=== PATIENT | female | born 1990 | race Caucasian/White ===

== ENCOUNTER 2021-06-30 09:24 | Day surgery (SDC) | payer OTHER ==
[~2021-06-30] VITALS: Ht 165.1 cm; Wt 63.5 kg
[2021-06-30 12:02] LABS: BILIRUBIN NEGATIVE (NEGATIVE); BLOOD 3+ Ery/uL (NEGATIVE); CLARITY CLEAR (CLEAR); COLOR YELLOW (YELLOW); GLUCOSE (U) NORMAL (NORMAL); LEUKOCYTES NEGATIVE Leu/uL (NEGATIVE); NITRITE NEGATIVE (NEGATIVE); PROTEIN NEGATIVE (NEGATIVE); SPECIFIC GRAVITY >=1.030 (1.001-1.030); UROBILINOGEN 0.2 mg/dL (0.2-1.0)
[2021-06-30 12:02] LABS: BASOPHIL 0.7 % (0-2); EOSINOPHIL 2.9 % (0-5); HGB 11.8 g/dl (12.5-16.0); LYMPHOCYTE 27.4 % (15-48); MCH 29.4 pg (25.0-31.0); MCHC 32.8 g/dL (32.0-36.0); MCV 89.6 fL (78.0-100.0); MONOCYTE 8.4 % (0-12); MPV 10.4 fL (6.0-9.5); NEUTROPHIL 60.3 % (41-80); NRBC 0; PLT 289 K/uL (150-400); RBC 4.02 M/uL (4.20-5.40); RDW 12.6 % (11.5-14.0); WBC 5.8 K/uL (4.0-10.5)
[2021-06-30 12:04] LABS: ALBUMIN 3.8 g/dL (3.4-5.0); BILIRUBIN - TOTAL 0.2 mg/dL (0.2-1.0); BUN/CREAT RATIO (CALC) 21.2 RATIO; CREATININE 0.8 mg/dL (0.51-0.95); POTASSIUM 4.7 mmol/L (3.5-5.1); TOTAL PROTEIN 6.8 g/dL (6.4-8.2)
[2021-06-30 12:16] LABS: BACTERIA TRACE; URINARY WBC RARE
[2021-06-30] MEDS ORDERED: COLACE100 MG PO (18:14)
[2021-06-30] MEDS ORDERED: MOTRIN600 MG PO (18:14)
[2021-06-30] MEDS ORDERED: ACETAMINOPHEN500 M1 PO (18:14)
[2021-06-30] MEDS ORDERED: OXY-IR 5MG5 MG PO (18:14)
== END 2021-06-30 22:40 | disposition home or self-care (01) ==
LOC: FER 09:24 → FAS 15:18 → FMS 18:17 → FAS 22:40
PROVIDERS: Emergency Medicine
DX: K80.12 Calculus of gallbladder with acute and chronic cholecystitis without obstruction (principal); K66.0 Peritoneal adhesions (postprocedural) (postinfection); F17.290 Nicotine dependence, other tobacco product, uncomplicated; Z20.822 Contact with and (suspected) exposure to COVID-19
CPT/HCPCS: 36415; 80053; 81001; 83690; 84145; 85025; J1100; J1170; J1644; J1885; J2250; J2405; J2543; J2704; J3010; J3480; J7030; J7120; Q9967; U0002

== ENCOUNTER 2021-07-20 10:32 | Emergency (ER) | payer OTHER ==
[~2021-07-20] VITALS: Ht 165.1 cm; Wt 63.5 kg
[~2021-07-20 10:32] MED LIST: ACETAMINOPHEN500 M1 PO; COLACE100 MG PO; MOTRIN600 MG PO; OXY-IR 5MG5 MG PO
[2021-07-20 11:42] LABS: BASOPHIL 0.4 % (0-2); EOSINOPHIL 2.8 % (0-5); HGB 12.7 g/dl (12.5-16.0); MCH 29.5 pg (25.0-31.0); MCHC 32.6 g/dL (32.0-36.0); MCV 90.7 fL (78.0-100.0); MONOCYTE 6.8 % (0-12); MPV 9.9 fL (6.0-9.5); NEUTROPHIL 57.6 % (41-80); NRBC 0; PLT 369 K/uL (150-400); RDW 12.7 % (11.5-14.0); WBC 6.7 K/uL (4.0-10.5)
[2021-07-20 11:51] LABS: ALBUMIN 4.4 g/dL (3.4-5.0); BILIRUBIN - TOTAL 0.5 mg/dL (0.2-1.0); BUN/CREAT RATIO (CALC) 18.6 RATIO; CREATININE 0.86 mg/dL (0.51-0.95); POTASSIUM 3.8 mmol/L (3.5-5.1); TOTAL PROTEIN 8.4 g/dL (6.4-8.2)
[2021-07-20 12:02] LABS: BILIRUBIN NEGATIVE (NEGATIVE); BLOOD TRACE-LYSED Ery/uL (NEGATIVE); CLARITY CLEAR (CLEAR); COLOR YELLOW (YELLOW); GLUCOSE (U) NORMAL (NORMAL); LEUKOCYTES 1+ Leu/uL (NEGATIVE); NITRITE NEGATIVE (NEGATIVE); PROTEIN NEGATIVE (NEGATIVE); SPECIFIC GRAVITY >=1.030 (1.001-1.030); UROBILINOGEN 0.2 mg/dL (0.2-1.0)
[2021-07-20 12:22] LABS: BACTERIA 1+
[2021-07-20 12:23] LABS: AMORPHOUS URATES CRYSTALS TRACE
== END 2021-07-20 15:42 | disposition home or self-care (01) ==
LOC: FER 10:32
PROVIDERS: Emergency Medicine
DX: K80.50 Calculus of bile duct without cholangitis or cholecystitis without obstruction (principal); Z20.822 Contact with and (suspected) exposure to COVID-19; Z28.310 Unvaccinated for COVID-19
CPT/HCPCS: 36415; 74181; 80053; 81001; 83690; 84145; 85025; J2270; J2405; J2543; J7030; Q9967; U0002